=== PATIENT | female | born 1965 | race Caucasian/White ===

== ENCOUNTER 2020-05-28 06:17 | Day surgery (SDC) | payer OTHER ==
[2020-05-24 13:10] VITALS: BMI 25.7
--- OUTSIDE RECORDS SUMMARY | 2020-05-28 06:21 | XMS ---
:1965 Author Organization [facility] Care Team Providers Name Role Phone MD JOHANNA GUPTA Unavailable Unavailable MD JOHANNA GUPTA Unavailable Unavailable MD JOHANNA GUPTA MD Unavailable Unavailable MD CANDY Unavailable Unavailable Abdi, D Unavailable Unavailable Abdi, D Unavailable Unavailable Abdi, D Unavailable Unavailable Abdi, D Unavailable Unavailable Abdi, D Unavailable Unavailable Abdi, D Unavailable Unavailable Abdi, D Unavailable Unavailable Abdi, D Unavailable Unavailable Abdi, D Unavailable Unavailable Abdi, D Unavailable Unavailable Abdi, D Unavailable Unavailable Abdi, D Unavailable Unavailable Abdi, D Unavailable Unavailable Abdi, D Unavailable Unavailable Abdi, D Unavailable Unavailable Abdi, D Unavailable Unavailable Abdi, D Unavailable Unavailable Abdi, D Unavailable Unavailable Abdi, D Unavailable Unavailable Ashikari, Y Unavailable [phone] Ashikari, Y Unavailable [phone] Ashikari, Y Unavailable [phone] Ashikari, Y Unavailable [phone] Ashikari, Y Unavailable [phone] Ashikari, Y Unavailable [phone] Ashikari, Y Unavailable [phone] Ashikari, Y Unavailable [phone] Ashikari, Y Unavailable [phone] Ashikari, Y Unavailable [phone] MD CANDY Unavailable Unavailable FRANCES FANG Unavailable Unavailable MD CANDY Unavailable Unavailable Re-disclosure Warning The records that you are about to access may contain information from federally- assisted alcohol or drug abuse programs. If such information is present, then the following federally mandated warning applies: This information has been disclosed to you from records protected by federal confidentiality rules (42 CFR part 2). The federal rules prohibit you from making any further disclosure of this information unless further disclosure is expressly permitted by the written consent of the person to whom it pertains or as otherwise permitted by 42 CFR part 2. A general authorization for the release of medical or other information is NOT sufficient for this purpose. The Federal rules restrict any use of the information to criminally investigate or prosecute any alcohol or drug abuse patient.The records that you are about to access may contain highly sensitive health information, the redisclosure of which is protected by Article 27-F of the [facility] Public Health law. If you continue you may haveaccess to information: Regarding HIV / AIDS; Provided by facilities licensed or operated by the [facility] Office of Mental Health; or Provided by the [facility] Office for People With Developmental Disabilities. If such information is present, then the following [facility] mandated warning applies: This information has been disclosed to you from confidential records which are protected by state law. State law prohibits you from making any further disclosure of this information without the specific written consent of the person to whom it pertains, or as otherwise permitted by law. Any unauthorized further disclosure in violation of state law may result in a fine or fdc sentence or both. A general authorization for the release of medical or other information is NOT sufficient authorization for further disclosure. Allergies and Adverse Reactions Type Description Substance Reaction Status Data Source(s ) Drug allergy No Known Drug No Known Drug [facility] Allergies Allergies [facility] Drug allergy No Known Allergies No Known [facility] Hospital Encounters Encounter Providers Location Date Indications Data Source(s ) Outpatient Attender: Sulma 05/21/2020 [facility] 10:56:00 AM Hospital EDT Outpatient Attender: ANNALISA, 10/15/2019 Z15.01 [facility] FRANCES HATFIELDdmitter: 06:36:00 AM [facility] FRANCES FANG EST Corporati on SHAHEReferrer: FRANCES FANG Z15.01 Outpatient Attender: ANNALISA 10/15/2019 06:00:00 Z15.01 [facility] FRANCES VINCENTRICKYdmitter: AM EST [facility] ANNALISAFRANCES Corporati on SHAHEReferrer: ARIESKETURAHRANJULIAOanh SIMONS Z15.01 Outpatient Attender: MD JOHANNA HICKMAN [facility] 10/13/2019 [place] [facility] - CANDYAttender: 10:14:39 AM EST [facility] JOHANNA Yuen: Hospital Center MD JOHANNA Yuen: Johanna Yuen: MD JOHANNA Yuen: MD JOHANNA GUPTA MDAttender: MD JOHANNA Razo: MD JOHANNA HUGHES Outpatient Attender: Johanna [facility] 10/13/2019 [facility] 10:14:39 AM EST [facility] 10/13/2019 [facility] 11:59:59 PM EST P Attender: Johanna [facility] 10/10/2019 [place] [facility] AshikariAttender: 05:09:52 PM EST [facility] ASHIKARIAttender: MD JOHANNA Yuen: MD JOHANNA Yuen: MD JOHANNA Yuen: MD JOHANNA GUPTA MDAttender: MD JOHANNA Razo: MD JOHANNA HUGHES Outpatient Attender: MD JOHANNA HICKMAN [facility] 10/08/2019 n60.0 [place] [facility] CANDYAttender: MRI 03:57:11 PM EST [facility] ASHIKARIAttmiranda: MD JOHANNA Yuen: Johanna Yuen: MD JOHANNA Yuen: MD JOHANNA Yuen: MD JOHANNA LAIRDeferrtri: MD JOHANNA GUPTA n60.0 Outpatient Attender: Johanna Nicholas [facility] 10/08/2019 [facility] 03:57:11 PM EST [facility] 10/08/2019 [facility] 11:59:59 PM EST Outpatient Attender: 10/07/2019 Z01.818 [facility] untFRANCES [facility]oss 11:07:00 AM EST Z15.09 [facility] SHAHEAdmitter: Corporatio n ARIESKETURAHRANJULIAOanh Nolascoferrer: FRANCES FANG Z01.818 Z15.09 P Attender: Johanna HICKMAN [facility] 10/03/2019 n60.0 [place] j[place] Yuen: 03:51:22 PM EST [facility] JOHANNA Machadoender: Hospital Center MD JOHANNA Yuen: MD JOHANNA Yuen: MD JOHANNA Yuen: MD JOHANNA GUPTA MDAttender: MD JOHANNA Lealerrer: MD JOHANNA GUPTA n60.0 P Attender: MD JOHANNA HICKMAN [facility] 09/25/2019 n60.0 N Y Ruthy Yuen: 04:30:40 PM EST [facility] JOHANNA Yuen: Hospital Center MD JOHANNA Yuen: Johanna Yuen: MD JOHANNA GUPTA MDAttender: MD JOHANNA Yuen: MD JOHANNA Lealerrer: MD JOHANNA GUPTA n60.0 Outpatient Attender: Sulma 04/23/2019 10:34:00 AM [facility] EDT Outpatient Attender: Sulma 04/10/2019 01:02:00 PM [facility] EDT Insurance Providers Payer name Policy type Policy ID Covered Covered green party's Policy P willian / Coverage green party ID relationship to Pérez Inf ormation type pérez UMR [id number] SP [id number] MVP EXCHANGE [id number] SP [id number] PLAN UMR [id number] SP [id number] UMR COM [id number] UMR COM [id number] Problems, Conditions, and Diagnoses Code Display Name Description Problem Type Effective Data Sour ce(s) Dates Z80.3 Family history of FAMILY HISTORY OF Diagnosis 10/15/2019 [place] malignant neoplasm MALIGNANT NEOPLASM 06:36:00 AM [facility] BREAST [facility] Care [facility] Z15.01 Genetic GENETIC Diagnosis 10/15/2019 [place] susceptibility to SUSCEPTIBILITY TO 06:36:00 AM [facility] malignant neoplasm MALIGNANT NEOPLASM EST Care of breast OF [employer] Z15.02 Genetic GENETIC Diagnosis 10/15/2019 [place] susceptibility to SUSCEPTIBILITY TO 06:36:00 AM [facility] malignant neoplasm MALIGNANT NEOPLASM EST Care of ovary OF [employer] Z40.02 Encounter for ENCOUNTER FOR Diagnosis 10/15/2019 [facility] prophylactic PROPHYLACTIC 06:36:00 AM [facility] removal of REMOVAL OF EST Care ovary(s) [employer] Z15.09 Genetic GENETIC Diagnosis 10/07/2019 [place] susceptibility to SUSCEPTIBILITY TO 11:07:00 AM [facility] other malignant OTHER MALIGNANT EST Care neoplasm NEOPLASM [employer] Z01.818 Encounter for ENCOUNTER FOR Diagnosis 10/07/2019 [facility] other OTHER 11:07:00 AM [facility] preprocedural PREPROCEDURAL EST Care examination EXAMINATION [employer] Results ID Date Data Source [id number] 05/24/2020 12:50:00 PM EDT [facility] Name Value Range Interpretation Description Data Sup porting Code Source(s) Document(s ) SARS [facility] coronavirus 2 RNA This lab was ordered by [facility] and reported by [facility]. ID Date Data Source [id number] 10/13/2019 10:50:00 AM EST [facility] [id number] [facility] Name Value Range Interpretation Description Data Source(s ) Supporting Code Document(s ) RADRPT <table border="1" [facility] gavin width="95%"><[facility]><col Hospital Center width="25%"></col ><col width="25%"></col ><col width="25%"></col ><col width="25%"></col ></colgroup><tbod y><tr><td>Exam Date Time</td><td>Proc edure</td><td>Per forming Provider</td><td> Status</td></tr>< tr><td>10/13/19 11:24 AM</td><td>US Breast Limited Left</td><td>SARA LA ARDMS, ADIA; </td><td>Auth (Verified)</td></ tr></tbody></tabl e><paragraph>Note s:</paragraph><pa ragraph>(US Breast Limited Left) Reason For Exam: Other</paragraph> <paragraph><chris nt>REPORT</conten t>
<content ID="[id number]">Examination : Left breast sonogram .

Histor y : Call back from MRI of the breast, study dated 10/08/2019 an
irregular focal area of non mass enhancement at the 12:00 axis and 4
cm the nipple and also rounded lesion at 3:00 axis and 6 cm the nipple
of non-- circumscribed margins and plateau kinetics .
BRCA 2 positive patient scheduled for bilateral prophylactic
mastectomy.
< br/>Comparison was made to the MRI of the breast dated 10/08/2019.

Quadrant scanning has been performed using real time technique.
<b r/>Impression:

1. There is no sonographic correlate for the irregular focal area of
non-mass enhancement at the 12:00 axis and 4 cm from the nipple. The
previousl y reported rounded lesion at the 3:00 axis is not correlated
so nographically.
There is no evidence of a suspicious solid lesion in the scanned areas
of the breast. No suspicious cystic lesion .

2. Please note a small percentage of breast neoplasms or lesions may
not be detected by this modality alone . If there is a palpable
abno rmality it should be managed completely on clinical grounds.
<br/ >Bi Rad : 1 : Negative Sonogram</content >
<content> Final

Di ctated: 10/13/2019 12:15 pm STEFFANIE SINGH MD

S igned (Electronic Signature): 10/13/2019 12:15 pm
Signed by: STEFFANIE SINGH MD
Transc ribed by: GISELLA Technologist: [id number]

Assessment: 1-Negative
Re commendation: Normal interval follow-up</conten t></paragraph> ID Date Data Source [id number] 10/13/2019 10:50:00 AM EST [id number] Name Value Range Interpretation Description Data Source(s ) Supporting Code Document(s ) RADRPT <table border="1" [facility] width="95%"><[facility] [place] [facility]><col [facility] width="25%"></col>< col width="25%"></col>< col width="25%"></col>< col width="25%"></col>< /colgroup><tbody><t r><td>Exam Date Time</td><td>Proced ure</td><td>Perform ing Provider</td><td>St at[facility]</td></tr><tr>< td>10/13/19 11:24 AM</td><td>US Breast Limited Right</td><td>CETOL A ARDMS, ADIA; </td><td>Auth (Verified)</td></tr ></tbody></table><p aragraph>Notes:</pa ragraph><paragraph> (US Breast Limited Right) Reason For Exam: FU</paragraph><para graph><content>REPO RT</content>
<c ontent ID="[id number]">Examination : Right breast sonogram .

History : BRCA 2 positive as stated by the patient. Patient scheduled
for bilateral prophylactic mastectomy.

Comparison was made to the prior breast MRI of the breast, study dated
10/08/2019. Please see that report. Comparison was also made to the
current mammography study dated 10/13/2019.
<br/ >

Impressi on:

1. 9:00 axis and 15 cm from the nipple an ovoid hypoechoic structure
or lesion is present that measures approximately 0.63 x 0.4 cm. This
may correlate with the MRI findings. Short interval follow-up sonogram
in 3 months time is suggested to establish stability. There is no
mammographic correlate.
At the 6:00 axis and 5 cm the nipple the non mass enhancement reported
in the MRI is not correlated sonographically. Findings and
recommendat ions were discussed with the patient at 11:45 AM.

2. Please note a small percentage of breast neoplasms or lesions may
not be detected by this modality alone . If there is a palpable
abnorm ality it should be managed completely on clinical grounds.

BIRADS. 3. Probably Benign . Short Interval Follow-up Suggested.</content >
<content> * Final

Dict ated: 10/13/2019 11:52 am STEFFANIE SINGH MD

Sig cece (Electronic Signature): 10/13/2019 11:52 am
Signed by: STEFFANIE SINGH MD
Transcri bed by: GISELLA Technologist: [id number]

As sessment: 3-Probably benign - short interval follow-up
Recom mendation: Follow-up at short interval</content>< /paragraph> ID Date Data Source [id number] 10/13/2019 10:28:53 AM EST [id number] [facility] Name Value Range Interpretation Description Data Source(s ) Supporting Code Document(s ) RADRPT <table border="1" [place] [facility] gavin width="95%"><[facility]><col Hospital Center width="25%"></col>< col width="25%"></col>< col width="25%"></col>< col width="25%"></col>< /colgroup><tbody><t r><td>Exam Date Time</td><td>Proced ure</td><td>Perform ing Provider</td><td>St atus</td></tr><tr>< td>10/13/19 10:49 AM</td><td>[place] Mammo Diagnostic Including CAD Bilat</td><td>LONG SEE; </td><td>Auth (Verified)</td></tr ></tbody></table><p aragraph>Notes:</pa ragraph><paragraph> ([place] Mammo Diagnostic Including CAD Bilat) Reason For Exam: FU</paragraph><para graph><content>REPO RT</content>
<c ontent ID="[id number]">EXAMINATION: Bilateral Full Field Digital Mammography.
<b r/>
CAD system was utilized .

Last clinical breast exam by her MD: 10/2019 .

HISTORY: Asymptomatic . BRCA positive. Patient is scheduled for
prophylacti c bilateral mastectomy.

Rather grandmother with Family history for breast neoplasm .

Comparis on was made to outside mammography, study dated 07/24/2017 ,
07/30/2018 and 08/05/2019 .
There is no significant change

MLO and CC views have been performed

Breast density : The breast tissue is heterogeneously dense which
could obscure detection of small masses. This patient will benefit
with supplemental imaging such as tomosynthesis .

Impressi on:

1. No evidence of a suspicious mass, abnormal cluster of
microcalcifi cations, architectural distortion or skin thickening . A
small intramammary lymph node in the left axillary tail is present.

2 . Routine annual mammogram is recommended. Bilateral dense breasts as
detailed above.

3. Please note approximately 10-15% of breast neoplasms may not be
detected by this modality alone . A palpable abnormality should be
managed completely on clinical grounds.

BI-RADS . 2. Benign findings.</content>
<content> Final

Dict ated: 10/13/2019 12:19 pm STEFFANIE SINGH MD

Sig cece (Electronic Signature): 10/13/2019 12:19 pm
Signed by: STEFFANIE SINGH MD
Transcri bed by: GISELLA Technologist: [id number]

As sessment: 2-Benign finding
Recomme ndation: Dense Breast Tissue - Normal interval follow-up</content> </paragraph> Procedure
[2020-05-28] MEDS ORDERED: LIDOCAINE HCL 1%, 10 MG/ML (20ML VIAL) ONE (07:11)
[2020-05-28] MEDS ORDERED: EPINEPHrine/PF 1 MG/1 ML (1:1,000) AMPULE ONE (07:11)
[2020-05-28] MEDS ORDERED: GENTAMICIN SO4 80 MG/2 ML VIAL ONE (07:11)
[2020-05-28] MEDS ORDERED: ceFAZolin SODIUM 1 GM VIAL ONE ×2 (07:11→07:48)
[2020-05-28] MEDS ORDERED: MIDAZOLAM HCL 2 MG/2 ML SINGLE DOSE VIAL ONE (07:41)
[2020-05-28] MEDS ORDERED: SUCCINYLCHOLINE CHLORIDE 200 MG/10 ML SYRINGE ONE (07:48)
[2020-05-28] MEDS ORDERED: DEXAMETHASONE SOD PHOSPHATE 4 MG/1 ML VIAL ONE ×2 (07:48→09:33)
[2020-05-28] MEDS ORDERED: ONDANSETRON 4 MG/2 ML VIAL ONE ×2 (07:48→09:33)
[2020-05-28] MEDS ORDERED: LIDOCAINE 1%/EPI 1:100000 (20 ML MULTI DOSE VIAL) ONE (08:06)
[2020-05-28] MEDS ORDERED: PROPOFOL 20 ML ONE (08:12)
[2020-05-28] MEDS ORDERED: EPHEDRINE SULFATE/0.9% NACL/PF 50 MG/10 ML SYRINGE NR ONE (08:18)
[2020-05-28] MEDS ORDERED: HYDROmorphone HCL/PF 1 MG/ML VIAL ONE (08:21)
[2020-05-28] MEDS ORDERED: BUPIVACAINE HCL/PF 0.25% (2.5MG/ML) 10 ML VIAL ONE (09:35)
[2020-05-28] MEDS ORDERED: BACITRACIN 15 GM TUBE TOPICAL OINTMENT ONE (10:02)
[2020-05-28] MEDS ORDERED: ONDANSETRON 4 MG/2 ML VIAL IVPUSH PRN (10:28)
[2020-05-28] MEDS ORDERED: oxyCODONE HCL 5 MG TABLET PO PRN (10:28)
[2020-05-28] MEDS ORDERED: LACTATED RINGERS SOLUTION 1,000 ML IV SCH (10:30)
[2020-05-28] MEDS ORDERED: oxyCODONE HCL 5 MG TABLET ONE (13:32)
[2020-05-28 19:22] VITALS: BP 110/70; PULSE 72; TEMP 97.8
--- NOTE | 2020-06-01 12:39 | OP ---
DATE OF OPERATION: 05/28/2020 SURGEON: Johanna Sanchez MD ADDICTIONS THERAPIST SURGEON: LAWANDA Abebe PREOPERATIVE DIAGNOSES: 1. 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 2. Asymmetry of reconstructed chest wall. 3. Left nipple-areolar necrosis status post mastectomy. 4. Mechanical complication of breast surgery. POSTOPERATIVE DIAGNOSES: 1. 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 2. Asymmetry of reconstructed chest wall. 3. Left nipple-areolar necrosis status post mastectomy. 4. Mechanical complication of breast surgery. OPERATIVE PROCEDURE: 1. Right breast reconstruction utilizing other technique. 2. Left breast reconstruction utilizing other technique. 3. Right breast capsulotomy, removal and replacement of right breast implant. 4. Left breast capsulotomy, removal and replacement of left breast implant. 5. Left nipple-areolar reconstruction with transfer of right nipple-areolar tissue to left. OPERATIVE INDICATION: Patient is a 54-year-old white female who previously underwent bilateral mastectomies for cancer-related issues. The patient now presents with gross asymmetry of the chest wall and need for the above procedures. The risks and benefits of surgical versus nonsurgical alternatives, as well as the material complications of the procedure were described on multiple occasions, including the day of surgery in the holding area where she was marked in a standing position for outline of the reconstructive procedure and of the nipple-sharing procedure from the right to the left breast. The patient agreed to the planned procedure. OPERATIVE PROCEDURE IN DETAIL: Patient was taken to the operating room, and after induction of general anesthesia in supine position, both arms were extended and padded, Venodyne boots were placed. At this point, after timeout and reconfirming the markings for the procedure itself, attention was turned to the mastectomy scars. After injection of 1% local lidocaine anesthesia, 1:100,000 epinephrine, attention was turned to the incision. An incision was made on the right breast down through the skin to the subcutaneous tissue, through the subcutaneous tissue down to the underlying deep tissue over the capsule. I then performed a capsulotomy, opening the capsule of the right breast transversely along the course of the incision and down into the rachid-implant pocket. The implant was then removed for pathologic diagnosis and sent to pathology. After copious irrigation of the wound with triple antibiotic solution and Betadine, the capsulotomy was performed in order to accept the new implant. The exact same procedure was then carried out symmetrically on the opposite side, also sending the implant for pathology. The discrepancy in the size of the implants was noticed, and capsulotomy was performed in order to accept the new implant. At this point, attention was then turned to the reconstructive tissue required for the reconstruction. Incision was planned in the lower abdominal area on both left and right sides in order to harvest reconstructive tissue. Incision was made after injecting with 1% local lidocaine anesthesia, down through the skin, through the subcutaneous tissue, down to the underlying musculature. Dissection was then carried over the rectus and lateral oblique fascia, removing reconstructive tissue from both right and left side. This tissue was then transferred to the back table for cleansing, washing, and preparing. The donor site was then closed with interrupted and running sutures on both the lower rectus and oblique fascia area. Attention was then turned back to the breast. An implant was chosen for the right breast. This was a Sientra smooth round high-profile 505-mL implant. This was transferred into the right breast pocket in sterile fashion using the Mackey funnel. Once this was accomplished, good shape and contour were seen momentarily, but then tissue was transferred to the right breast because of the preoperative asymmetry and because of the mechanical issues with the implants to the right breast in the superior, medial, and central portions of the right breast. This was temporarily closed with 2-0 PDS suture on the deep fascia and capsule, and attention was turned to the opposite side. The exact same procedure was carried out symmetrical on the opposite side with the implant, and tissue was harvested, and reconstructive tissue was added to contour both breasts symmetrically. This was also closed in a similar fashion. The more superficial layers of the wounds were closed in multiple layers using 3-0 PDS on the deep dermis and a subcuticular suture using 4-0 Biosyn on the skin. The patient tolerated the procedure well. All wounds were dressed with Steri-Strips on the lower mastectomy scar. At this point, attention was turned to the nipple-sharing procedure. The right nipple-areolar complex was marked for central V excision of the nipple complex for reduction and transfer and sharing. This was then harvested down through skin into the deep ducts of the nipple-areolar complex, harvesting the central portion in V-shaped fashion and fishmouth closure with 5-0 plain suture. Hemostasis was meticulously obtained throughout, and the nipple-areolar complex was transferred to the opposite left breast. The necrotic and reduced area on the left nipple-areolar complex was then deepithelialized in the central portion for nipple insertion. All punctate bleeding was cauterized with the electrocautery, and the nipple-areolar complex from the right was transferred to the left side. This was then sutured into place using 5-0 plain catgut sutures in multiple sutures around the periphery, and a compressive sterile dressing was placed over for postoperative care. Both wounds were dressed similarly with Bacitracin and compression dressings. She tolerated the procedure well. She went to the recovery room in satisfactory condition, tolerated the procedure well. JOHANNA SANCHEZ M.D. /[id number]
--- NOTE | 2020-06-02 17:17 | PATH ---
Surgical Pathology Report Patient Name: CHARLES LEON [facility]. Rec. #: [id number] /Age/Gender: 1965 (Age: 54) / F Account: [id number] Location: [facility] AMBULATORY Taken: 05/28/2020 Received: 05/28/2020 Reported: 06/02/2020 Physicians: Carmelo Sanchez Specimen(s) Received A: LEFT BREAST CAPSULE B: RIGHT BREAST CAPSULE C: IMPLANTS BILATERAL BREAST Clinical History Breast cancer Final Diagnosis A. LEFT BREAST CAPSULE, CAPSULECTOMY: DENSE FIBROUS AND ADIPOSE TISSUE CONSISTENT WITH CAPSULE. NEGATIVE FOR MALIGNANCY. B. RIGHT BREAST CAPSULE, CAPSULECTOMY: DENSE FIBROUS CAPSULE WITH FOCAL CHRONIC INFLAMMATION AND MULTINUCLEATED GIANT CELL REACTION. NEGATIVE FOR MALIGNANCY. C. IMPLANTS, BILATERAL BREAST, REMOVAL: CONSISTENT WITH BREAST IMPLANTS. GROSS ONLY. Electronically Signed Joe Vargas M.D. Gross Description A. Received in formalin labeled "left breast capsule," are 3 fermin, irregular portions of firm fibrous tissue, consistent with fibrous capsule. The specimens range from 1.3 x 0.7 x 0.3 cm to 1.7 x 0.7 x 0.4 cm. Boatbuilder Supervisor sections are submitted in one cassette. B. Received in formalin labeled "right breast capsule," is a 3.0 x 1.1 x 0.3 cm portion of fermin-quezada firm fibrous tissue, consistent with a fibrous capsule. Boatbuilder Supervisor sections are submitted in one cassette. C. Received fresh labeled "implant bilateral breast," are two clear, rubbery, intact breast implants averaging 12.5 cm in diameter and 3.5 cm in depth. No soft tissue is present. No sections are submitted, gross only. /05/31/2020 saudi/05/31/2020
--- NOTE | 2020-06-03 13:44 | SURG ---
Surgery Co Founder And Cto Note Co Founder And Cto: Alie Russell PA-C (Suzy) Date of Service: 05/28/20 Diagnosis: 1. 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 Asymmetry of reconstructed chest wall 3. Left nipple-areolar necrosis status post mastectomy 4. Mechanical complication of breast surgery Procedure: 1. Right breast reconstruction utilizing other technique 2. Left breast reconstruction utilizing other technique 3. Right breast capsulotomy, removal and replacement of right breast implant 4. Left breast capsulotomy, removal and replacement of left breast implant 5. Left nipple-areolar reconstruction with transfer of right nipple-areolar tissue to left I was present for the entirety of the operative procedure. For further detail, please refer to operative report. Visit type - Case Type Case Type: Scheduled - Emergency Emergency Visit: No - New patient This patient is new to me today: Yes Date on this admission: 06/03/20 - Critical Care Critical Care patient: No
== END 2020-05-28 15:35 | disposition home or self-care (01) ==
LOC: FASU 06:17
PROVIDERS: ATTEND Plastic Surgery
PROC: 0HNV0ZZ Release Bilateral Breast, Open Approach (ICD-10-PCS; 2020-05-28)
PROC: 0HRV0JZ Replacement of Bilateral Breast with Synthetic Substitute, Open Approach (ICD-10-PCS; 2020-05-28)
PROC: 0HPU0JZ Removal of Synthetic Substitute from Left Breast, Open Approach (ICD-10-PCS; 2020-05-28)
PROC: 0HPT0JZ Removal of Synthetic Substitute from Right Breast, Open Approach (ICD-10-PCS; 2020-05-28)
PROC: 0HRV0JZ Replacement of Bilateral Breast with Synthetic Substitute, Open Approach (ICD-10-PCS; 2020-05-28)
PROC: 0HQX0ZZ Repair Left Nipple, Open Approach (ICD-10-PCS; 2020-05-28)
PROC: 0HRV07Z Replacement of Bilateral Breast with Autologous Tissue Substitute, Open Approach (ICD-10-PCS; principal; 2020-05-28 08:29)
DX: Z95.4 Presence of other heart-valve replacement (principal); Z15.09 Genetic susceptibility to other malignant neoplasm; Z90.13 Acquired absence of bilateral breasts and nipples; N65.1 Disproportion of reconstructed breast; N64.1 Fat necrosis of breast; T85.41XA Breakdown (mechanical) of breast prosthesis and implant, initial encounter; Y83.8 Other surgical procedures as the cause of abnormal reaction of the patient, or of later complication, without mention of misadventure at the time of the procedure; Y92.89 Other specified places as the place of occurrence of the external cause
CPT/HCPCS: 88300-TC; 88304-TC; 94760